=== PATIENT | female | born 1990 | race African-American/Black ===

== ENCOUNTER 2023-02-14 18:16 | Emergency (ER) | payer MEDICAID ==
[~2023-02-14] VITALS: Ht 157.5 cm; Wt 96.2 kg
[2023-02-14 18:25] VITALS: BP_SYST 154
[2023-02-14] MEDS ORDERED: NACL 0.9% 1,000 ML IV ONE (19:15)
[2023-02-14 19:19] LABS: BASOPHILS % (AUTO) 0.6 % (0.0-2.0); EOSINOPHILS % (AUTO) 0.6 % (0.0-4.0); HEMATOCRIT 35.3 % (36-48); HEMOGLOBIN 11.7 g/dL (12.0-16.0); LYMPHOCYTES % (AUTO) 25.1 % (20.5-51.5); MEAN CORPUSCULAR HEMOGLOBIN 27 pg (27-31); MEAN CORPUSCULAR HGB CONC 33 % (32-36); MEAN CORPUSCULAR VOLUME 82 fL (79.0-98.0); MONOCYTES # (AUTO) 0.8 K/uL (0.0-1.0); MONOCYTES % (AUTO) 10.3 % (1.7-9.3); NEUTROPHILS % (AUTO) 63.4 % (40.0-70.0); PLATELET COUNT (AUTO) 262 K/uL (130-430); RED CELL DISTRIBUTION WIDTH 15.4 % (9.0-15.0); WHITE BLOOD COUNT (AUTO) 7.9 K/uL (4.8-10.8)
[2023-02-14 19:38] LABS: ALANINE AMINOTRANSFERASE 20 U/L (12-78); ALBUMIN 3.4 g/dL (3.4-4.8); ANION GAP 8 (5-15); ASPARTATE AMINOTRANSFERASE 15 U/L (10-37); CALCIUM 8.5 mg/dL (8.4-11.0); CHLORIDE 104 mmol/L (98-107); CREATININE 0.79 mg/dL (0.55-1.30); GFR AFRICAN AMERICAN 109 mL/min (>90); GLUCOSE 92 mg/dL (70-99); HCG,QUANTITATIVE 0 mIU/ML (0-6); TOTAL BILIRUBIN 0.2 mg/dL (0.0-1.0); UREA NITROGEN, BLOOD 13 mg/dL (8-21)
[2023-02-14 20:43] LABS: BILIRUBIN,URINE NEGATIVE (NEGATIVE); BLOOD, URINE NEGATIVE (NEGATIVE); COLOR,URINE YELLOW (YELLOW); GLUCOSE,URINE NEGATIVE (NEGATIVE); KETONES,URINE TRACE (NEGATIVE); LEUKOCYTE ESTERASE ,URINE NEGATIVE (NEGATIVE); NITRITE, URINE NEGATIVE (NEGATIVE); PROTEIN URINE TRACE (NEGATIVE); UROBILINOGEN,URINE 0.2 (0.2-1.0)
[2023-02-14 20:44] LABS: CLARITY/URINE HAZY (CLEAR)
[2023-02-14 20:49] LABS: BACTERIA,URINE FEW /HPF (None Seen); CALCIUM OXALATE CRYSTALS,UR 0-10 /HPF (None Seen); RBC,URINE 0-3 /HPF (0-3); WBC,URINE 0-3 /HPF (0-3)
[2023-02-14 20:50] LABS: MUCUS,URINE 2+ /LPF (None Seen); URINE AMORPHOUS PHOSPHATES 1+ /HPF (None Seen)
[2023-02-14 21:40] VITALS: BP_SYST 126
[2023-02-14 23:22] LABS: HCG,QUAL RESULT NEGATIVE (NEGATIVE)
== END 2023-02-14 21:39 | disposition home or self-care (01) ==
LOC: SED 18:16
DX: R10.9 Unspecified abdominal pain (principal); J45.909 Unspecified asthma, uncomplicated; K21.9 Gastro-esophageal reflux disease without esophagitis; Z79.899 Other long term (current) drug therapy
CPT/HCPCS: 99285; 96360; 70450; 71045; 80053; 81000; 84703; 84702; 85025; 84484; 36415; 93005; 76376; J7030